=== PATIENT | female | born 1985 | race Caucasian/White ===

== ENCOUNTER 2022-01-10 07:54 | Emergency (ER) | payer MEDICAID ==
[~2022-01-10] VITALS: Ht 162.6 cm; Wt 66.7 kg
[2022-01-10] VITALS (7 sets, daily range): BP systolic 130–156; BP diastolic 78–101
[~2022-01-10 07:54] MED LIST: BACTRIM DS1 TAB OR; BENADRYL 50MG C50 MG OR; BENADRYL25 M1 OR; LORTAB 5 OR; LORTAB5 OR; LOTRISONE CREAM15 G1 EX; MEDDOSEPAK OR; MEDROL4 M1 OR; NAPROSYN500 MG PO; NO HOME MEDS; PENICILLN VK500 MG OR; ULTRAM50 M1 PO
[2022-01-10 08:21] LABS: HEMATOCRIT 40.9 % (37.0-47.0); HEMOGLOBIN 13.4 g/dl (12.0-16.0); IMMATURE GRANULOCYTES 0.1 % (0.0-5.0); MEAN CORPUSCULAR HGB CONC 32.8 g/dL CAL (32.0-36.0); RED BLOOD COUNT 4.32 mill/uL (4.20-5.60); RED CELL DISTRI WIDTH 12.8 % (11.5-15.5)
[2022-01-10 08:22] LABS: MEAN CELL VOLUME 94.7 fL CALC (80.0-100.0)
[2022-01-10 08:43] LABS: ANION GAP 10 (6-22 (CALC)); BUN 12 mg/dL (7-17); BUN/CREATININE RATIO 18 (12-20 (CALC)); CARBON DIOXIDE 24 mmol/l (22-30); CHLORIDE 108 mmol/l (95-108); CREATININE 0.7 mg/dL (0.5-1.0); GFR FOR AFR.AMER. > 60 ML/MIN (>=60 (CALC)); GFR OTHER RACES > 60 ML/MIN (>=60 (CALC)); POTASSIUM 4.1 mmol/l (3.5-5.1); SODIUM 138 mmol/l (137-146)
[2022-01-10 08:50] LABS: ALKALINE PHOSPHATASE 62 u/l (38-126); BILIRUBIN, TOTAL 0.4 mg/dL (0.0-1.4); SGOT/AST 27 u/l (14-36)
== END 2022-01-10 11:08 | disposition short-term general hospital (02) ==
LOC: ED 07:54
PROVIDERS: Family Medicine
DX: R56.9 Unspecified convulsions (principal); F17.200 Nicotine dependence, unspecified, uncomplicated
CPT/HCPCS: J1953; J2060

== ENCOUNTER 2022-02-04 08:28 | Emergency (ER) | payer MEDICAID ==
[~2022-02-04] VITALS: Ht 162.6 cm; Wt 65.0 kg
[2022-02-04] VITALS (19 sets, daily range): BP systolic 122–165; BP diastolic 87–112
[2022-02-04 09:22] LABS: HEMATOCRIT 43.2 % (37.0-47.0); HEMOGLOBIN 14.5 g/dl (12.0-16.0); IMMATURE GRANULOCYTES 0.1 % (0.0-5.0); MEAN CELL VOLUME 92.5 fL CALC (80.0-100.0); MEAN CORPUSCULAR HGB CONC 33.6 g/dL CAL (32.0-36.0); NEUT# 5.06 thou/uL (2.00-7.15); RED BLOOD COUNT 4.67 mill/uL (4.20-5.60); RED CELL DISTRI WIDTH 12.4 % (11.5-15.5)
[2022-02-04 09:58] LABS: ALBUMIN 4.2 g/dL (3.2-5.0); ALKALINE PHOSPHATASE 71 u/l (38-126); ANION GAP 9 (6-22 (CALC)); BILIRUBIN, TOTAL 0.5 mg/dL (0.0-1.4); BUN 7 mg/dL (7-17); BUN/CREATININE RATIO 9 (12-20 (CALC)); CARBON DIOXIDE 25 mmol/l (22-30); CHLORIDE 107 mmol/l (95-108); CREATININE 0.7 mg/dL (0.5-1.0); GFR FOR AFR.AMER. > 60 ML/MIN (>=60 (CALC)); GFR OTHER RACES > 60 ML/MIN (>=60 (CALC)); POTASSIUM 4.4 mmol/l (3.5-5.1); SGOT/AST 32 u/l (14-36); SODIUM 136 mmol/l (137-146); TOTAL PROTEIN 7.2 g/dL (6.3-8.2)
== END 2022-02-04 14:00 | disposition short-term general hospital (02) ==
LOC: ED 08:28
PROVIDERS: Family Medicine
DX: R56.9 Unspecified convulsions (principal)
CPT/HCPCS: J1953; J2060

== ENCOUNTER 2022-05-23 06:44 | Emergency (ER) | payer MEDICAID ==
[~2022-05-23] VITALS: Ht 162.6 cm; Wt 65.9 kg
[2022-05-23] VITALS (11 sets, daily range): BP systolic 134–157; BP diastolic 82–106
[2022-05-23] MEDS ORDERED: KEPPRA500 M2 PO ×2 (07:03→07:48)
[2022-05-23 07:33] LABS: HEMATOCRIT 38.9 % (37.0-47.0); HEMOGLOBIN 13.2 g/dl (12.0-16.0); IMMATURE GRANULOCYTES 0.1 % (0.0-5.0); MEAN CELL VOLUME 93.5 fL CALC (80.0-100.0); MEAN CORPUSCULAR HGB 31.7 pG CALC (26.0-32.0); MEAN CORPUSCULAR HGB CONC 33.9 g/dL CAL (32.0-36.0); NEUT# 4.93 thou/uL (2.00-7.15); RED BLOOD COUNT 4.16 mill/uL (4.20-5.60); RED CELL DISTRI WIDTH 12.1 % (11.5-15.5)
[2022-05-23 08:05] LABS: ALBUMIN 4.1 g/dL (3.2-5.0); ALKALINE PHOSPHATASE 59 u/l (38-126); ANION GAP 11 (6-22 (CALC)); BILIRUBIN, TOTAL 0.6 mg/dL (0.0-1.4); BUN 7 mg/dL (7-17); BUN/CREATININE RATIO 10 (12-20 (CALC)); CARBON DIOXIDE 23 mmol/l (22-30); CHLORIDE 107 mmol/l (95-108); CREATININE 0.7 mg/dL (0.5-1.0); GFR FOR AFR.AMER. > 60 ML/MIN (>=60 (CALC)); GFR OTHER RACES > 60 ML/MIN (>=60 (CALC)); POTASSIUM 3.8 mmol/l (3.5-5.1); SGOT/AST 28 u/l (14-36); SODIUM 138 mmol/l (137-146); TOTAL PROTEIN 6.9 g/dL (6.3-8.2)
== END 2022-05-23 09:15 | disposition home or self-care (01) ==
LOC: ED 06:44
PROVIDERS: Family Medicine
DX: R56.9 Unspecified convulsions (principal)
CPT/HCPCS: J1953

== ENCOUNTER 2022-11-10 11:32 | Emergency (ER) | payer MEDICAID ==
[2022-11-10] VITALS (7 sets, daily range): BP systolic 122–157; BP diastolic 80–110
[~2022-11-10] VITALS: Ht 162.6 cm; Wt 61.8 kg
[~2022-11-10 11:32] MED LIST changes: +KEPPRA500 M2 PO
[2022-11-10 11:57] LABS: BASO% 0.5 % (0-3); EOS% 1.5 % (0-8); HEMATOCRIT 41.1 % (37.0-47.0); HEMOGLOBIN 13.7 g/dl (12.0-16.0); IMMATURE GRANULOCYTES 0.1 % (0.0-5.0); LYMPH% 18.5 % (15-41); MEAN CELL VOLUME 92.6 fL CALC (80.0-100.0); MEAN CORPUSCULAR HGB 30.9 pG CALC (26.0-32.0); MEAN CORPUSCULAR HGB CONC 33.3 g/dL CAL (32.0-36.0); MONO% 5.7 % (2-13); NEUT# 5.91 thou/uL (2.00-7.15); NEUT% 73.7 % (42-76); RED BLOOD COUNT 4.44 mill/uL (4.20-5.60)
[2022-11-10 12:36] LABS: ALBUMIN 4.8 g/dL (3.2-5.0); ALKALINE PHOSPHATASE 78 u/l (38-126); BILIRUBIN, TOTAL 0.7 mg/dL (0.02-1.3); BUN 8 mg/dL (7-17); BUN/CREATININE RATIO 13 (12-20 (CALC)); CARBON DIOXIDE 25 mmol/l (22-30); CHLORIDE 106 mmol/l (95-108); CREATININE 0.6 mg/dL (0.5-1.0); GFR FOR AFR.AMER. > 60 ML/MIN (>=60 (CALC)); GFR OTHER RACES > 60 ML/MIN (>=60 (CALC)); SGOT/AST 36 u/l (14-36); SODIUM 140 mmol/l (137-146); TOTAL PROTEIN 8.2 g/dL (6.3-8.2)
[2022-11-10 12:38] LABS: ANION GAP 13 (6-22 (CALC)); POTASSIUM 3.9 mmol/l (3.5-5.1)
[2022-11-10 12:39] LABS: ETHYL ALCOHOL 0 mg/dl (0-30)
[2022-11-10] MEDS ORDERED: KEPPRA500 M2 PO (13:17)
== END 2022-11-10 13:58 | disposition home or self-care (01) ==
LOC: ED 11:32
PROVIDERS: Family Medicine
DX: G40.909 Epilepsy, unspecified, not intractable, without status epilepticus (principal); Z79.899 Other long term (current) drug therapy
CPT/HCPCS: J1953

== ENCOUNTER 2023-02-03 12:19 | Emergency (ER) | payer MEDICAID ==
[~2023-02-03] VITALS: Ht 160 cm; Wt 62.0 kg
[2023-02-03] VITALS (9 sets, daily range): BP systolic 120–152; BP diastolic 80–93
[2023-02-03 13:03] LABS: BASO% 0.3 % (0-3); EOS% 0.2 % (0-8); HEMATOCRIT 39.7 % (37.0-47.0); HEMOGLOBIN 13.1 g/dl (12.0-16.0); IMMATURE GRANULOCYTES 0.1 % (0.0-5.0); LYMPH% 5.3 % (15-41); MEAN CELL VOLUME 92.5 fL CALC (80.0-100.0); MEAN CORPUSCULAR HGB 30.5 pG CALC (26.0-32.0); MONO% 2.9 % (2-13); NEUT# 10.47 thou/uL (2.00-7.15); NEUT% 91.2 % (42-76); RED BLOOD COUNT 4.29 mill/uL (4.20-5.60); RED CELL DISTRI WIDTH 11.9 % (11.5-15.5)
[2023-02-03 13:11] LABS: ALBUMIN 4.4 g/dL (3.2-5.0); ALKALINE PHOSPHATASE 76 u/l (38-126); ANION GAP 12 (6-22 (CALC)); BUN 10 mg/dL (7-17); BUN/CREATININE RATIO 17 (12-20 (CALC)); CARBON DIOXIDE 22 mmol/l (22-30); CHLORIDE 106 mmol/l (95-108); CREATININE 0.6 mg/dL (0.5-1.0); GFR FOR AFR.AMER. > 60 ML/MIN (>=60 (CALC)); GFR OTHER RACES > 60 ML/MIN (>=60 (CALC)); POTASSIUM 3.7 mmol/l (3.5-5.1); SGOT/AST 33 u/l (14-36); SODIUM 136 mmol/l (137-146); TOTAL PROTEIN 7.5 g/dL (6.3-8.2)
[2023-02-03 16:07] LABS: URINE BILIRUBIN - DIPSTICK NEGATIVE (NEGATIVE); URINE BLOOD DIPSTICK NEGATIVE (NEGATIVE); URINE COLOR YELLOW; URINE GLUCOSE - DIPSTICK NEGATIVE (NEGATIVE); URINE KETONE 40 mg/dL (NEGATIVE); URINE LEUK ESTERASE NEGATIVE (NEGATIVE); URINE PH 5.5 (4.5-8.0); URINE PROTEIN - DIPSTICK NEGATIVE (NEG-TRACE); URINE SPECIFIC GRAVITY 1.025; URINE UROBILINOGEN - DIPSTICK 0.2 E.U./dL (0.2)
[2023-02-03 16:08] LABS: URINE NITRITE - DIPSTICK NEGATIVE (Negative)
== END 2023-02-03 16:48 | disposition home or self-care (01) ==
LOC: ED 12:19
PROVIDERS: Nurse Practitioner
DX: G40.909 Epilepsy, unspecified, not intractable, without status epilepticus (principal)
CPT/HCPCS: J1953; J2060

== ENCOUNTER 2023-03-28 19:39 | Emergency (ER) | payer MEDICAID ==
[~2023-03-28] VITALS: Ht 160 cm; Wt 63.0 kg
[2023-03-28] MEDS ORDERED: STERAPRED DS10 MG PO (21:32)
[2023-03-28 22:13] VITALS: BP 132/87
== END 2023-03-28 22:13 | disposition home or self-care (01) ==
LOC: ED 19:39
DX: L25.9 Unspecified contact dermatitis, unspecified cause (principal)

== ENCOUNTER 2024-10-15 10:02 | Emergency (ER) | payer SELFPAY ==
[~2024-10-15] VITALS: Ht 160 cm; Wt 64.0 kg
[~2024-10-15 10:02] MED LIST changes: +AMOXICILLIN500 M2 PO; +MOTRIN800 MG PO; +STERAPRED DS10 MG PO
[2024-10-15] MEDS ORDERED: TRAMADOL HYDROC50 M1 PO (10:27)
[2024-10-15] MEDS ORDERED: BACTRIM DS1 TAB PO (10:27)
[2024-10-15] MEDS ORDERED: CEPHALEXIN500 MG PO (10:27)
[2024-10-15] MEDS ORDERED: EC-NAPROXEN500 MG PO (10:27)
[2024-10-15 10:47] VITALS: BP 134/90
== END 2024-10-15 11:03 | disposition home or self-care (01) | DRG 603 ==
LOC: ED 10:02
DX: L03.211 Cellulitis of face (principal)